=== PATIENT | female | born 1945 | race Caucasian/White ===

== ENCOUNTER → 2016-12-18 | Outpatient (CLI) | payer OTHER, MEDICARE | LOC: FLAB 14:17 | PROVIDERS: ATTEND Nurse Practitioner | DX: Z98.1 Arthrodesis status (principal); M54.5 Low back pain ==

== ENCOUNTER 2017-03-29 14:13 | Emergency (ER) | payer OTHER, MEDICARE ==
[2017-03-29 14:33] VITALS: BP 123/71; PULSE 78; RESP 22; TEMP 97.7; O2SAT 98
[2017-03-29] MEDS ORDERED: DIAZEPAM 10 MG/2 ML SYR IVP ONE (14:50)
[2017-03-29] MEDS ORDERED: DEXAMETHASONE 10 MG/ML VIAL IVP ONE (14:50)
--- NOTE | 2017-03-29 15:11 | EDPHY ---
H & P Stated Complaint: r back and abd pain Source: Patient, Family Exam Limitations: No limitations - Personal History Current Tetanus Diphtheria and Acellular Pertussis (TDAP): Yes Tetanus Vaccine Date: December 2014 - Medical/Surgical History Hx Asthma: No Hx Chronic Respiratory Disease: No Hx Diabetes: Yes Hx Cardiac Disease: No Hx Renal Disease: No Hx Cirrhosis: No Hx Alcoholism: No Hx HIV/AIDS: No Hx Splenectomy or Spleen Trauma: No Other PMH: hysterectomy, first back surgery 4-5 yrs ago, type 2 diabetes, chronic pain - Social History Smoking Status: Never smoked Time Seen by Provider: 03/29/17 15:07 HPI/ROS: HPI: This is a 71-year-old female who presents with Chief Complaint: Right lower back pain Location: Right lower back Quality: Sharp pain Duration: 1 day Signs and Symptoms: + radiation to right buttock, no incontinence, no dysuria, no hematuria, no weakness, no tingling, no numbness Timing: Gradually worsening Severity: 03/05 Context: Patient has a prior history of an instrumented lumbar fusion L3-L4 level, with acute on chronic exacerbation a bilateral lumbar sacral radiculopathy, right greater than left with dull chronic axial low back pain. She reports that she has had 3 back surgeries total. [facility] higher level class than she normally does experience some right hip pain and lower back pain during the class; modified her position. She woke up Thursday morning with right lower back pain that was worse than her baseline; and now has radiculopathy into her right buttock. She is convinced that her SI joint is the cause. No history kidney stones. Reports that she stopped taking her Neurontin in December due to causing "fluid buildup." Modifying Factors: Flexeril, tramadol no relief Comment: ROS: Constitutional: No fever, no chills, no weight loss Eyes: No blurred vision Respiratory: No shortness of breath, no cough Cardiovascular: No chest pain Gastrointestinal: No nausea, no vomiting no diarrhea Genitourinary: No dysuria Extremities: No myalgias Neurologic: No weakness, no numbness Skin: No rashes Hematologic: No bruising, no bleeding MEDICAL/SURGICAL HISTORY: Type 2 diabetes mellitus on metformin. (Beba Velasquez) - Physical Exam Exam: CONSTITUTIONAL: Adult white female who appears younger than stated age, moaning and writhing in bed, awake and alert, moderate distress HEENT: Atraumatic and normocephalic, PERRL, EOMI. Tympanic membranes clear. Oropharynx clear, no exudate and moist pink mucosa. Airway patent. No lymphadenopathy. No meningismus. Cardiovascular: Normal S1/S2, regular rate, regular rhythm, without murmur rub or gallop. PULMONARY/CHEST: Symmetrical and nontender. Clear to auscultation bilaterally Good air movement. No accessory muscle usage. ABDOMEN: Soft, nondistended, nontender, no rebound, no guarding, no peritoneal signs, no masses or organomegaly. No CVAT. EXTREMITIES: 2/2 pulses, no deformities, no clubbing, no cyanosis or edema. BACK: Moderate reproducible right paraspinous muscle tenderness lumbar distribution; no paraspinous spasm, mild pain with right straight leg raise. Deep tendon reflexes 2/2 including patellar reflexes 2/2. Right hip: No tenderness over the greater trochanter; no pain with flexion/extension/internal rotation/external rotation. tenderness with palpation right SI joint. NEUROLOGICAL: no focal neuro deficits. GCS 15. Ambulatory with slow gait. SKIN: Warm and dry, no erythema. no rash. Good capillary refill. (Beba Velasquez) Constitutional: Initial Vital Signs Temperature (C) 36.5 C 03/29/17 14:30 Heart Rate 78 03/29/17 14:30 Respiratory Rate 22 H 03/29/17 14:30 Blood Pressure 123/71 H 03/29/17 14:30 O2 Sat (%) 98 03/29/17 14:30 O2 Delivery Mode Room Air Allergies/Adverse Reactions: propoxyphene HCl [From Darvon] Allergy (Severe, Verified 03/29/17 14:25) TONGUE SWELLING, CHOKING aspirin Allergy (Verified 03/29/17 14:25) Vomiting esomeprazole magnesium [From Nexium] Allergy (Verified 03/29/17 14:25) Vomiting ibuprofen Allergy (Verified 03/29/17 14:25) Vomiting lactose [Lactose] Allergy (Verified 03/29/17 14:25) GI meperidine HCl [From Demerol] Allergy (Verified 03/29/17 14:25) Abdominal Pain Sulfa (Sulfonamide Antibiotics) Allergy (Verified 09/03/17 14:25) Rash Home Medications: Medication Instructions Recorded Calcium Carb W/Vit D [Calcium Carb 500 mg PO BID 05/08/15 W/Vit D 500/200 (*)] Cyclobenzaprine [Flexeril] 10 mg PO BID PRN 05/08/15 Desloratadine [Clarinex] 5 mg PO DAILY 05/08/15 Docusate Sodium [Colace 100 MG (*)] 100 mg PO HS 05/08/15 Epinastine 0.05% [Elestat 0.05%] 1 drops EACHEYE BID PRN 05/08/15 Estradiol [VAGIFEM] 10 mcg VG WE@2100 05/08/15 Famotidine [Pepcid 20 MG (*)] 20 mg PO BID PRN 05/08/15 Herbals/Supplements -Info Only 1 ea PO DAILY 05/08/15 Metoprolol Succinate Xr [Toprol Xl 6.25 mg PO DAILY PRN 05/08/15 25 mg (*)] Mometasone Furoate Nasal [Nasonex] 1 sprays NASAL DAILY PRN 05/08/15 Simvastatin [Zocor] 20 mg PO DAILY@1800 05/08/15 metFORMIN HCL [Glucophage 500 mg 500 mg PO BIDMEAL 05/08/15 (*)] C/E/Zn/Cu/OM3/DHA/EPA/LUT/ZEAX 1 each PO BID 05/09/15 [Preservision Areds 2 Softgel] Diazepam [Valium 5 MG (*)] 2.5 - 5 mg PO QID PRN #0 tab 06/09/15 Gabapentin [Neurontin 300 MG (*)] 600 mg PO TID #0 cap 06/09/15 Lidocaine 5% [Lidoderm 5% Patch 1 ea TD DAILY #0 patch 06/09/15 (*)] Methocarbamol [Robaxin 750 mg (*)] 750 mg PO QID PRN #0 tab 06/09/15 Lidocaine 5% [Lidoderm 5% Patch 1 ea TD DAILY PRN #12 patch 03/29/17 (*)] Senna Lax 03/29/17 traMADol 03/29/17 traMADol [Ultram 50 mg (*)] 50 mg PO Q4 PRN #15 tab 03/29/17 Medical Decision Making - Diagnostics Imaging Results: Imaging Impressions Lumbar Spine X-Ray 03/29/17 14:50 Impression: Excellent stable postoperative alignment x 4 months. 2. AP Pelvis History: Low back and SI joint pain Comparison: None Findings: The pelvic ring is intact. The SI joints, hip joints and pubic symphysis look normal. Overall mineralization is normal. Impression: Negative Pelvis X-Ray 03/29/17 14:50 Impression: Excellent stable postoperative alignment x 4 months. 2. AP Pelvis History: Low back and SI joint pain Comparison: None Findings: The pelvic ring is intact. The SI joints, hip joints and pubic symphysis look normal. Overall mineralization is normal. Impression: Negative ED Course/Re-evaluation: The patient was evaluated and managed by the physician optometry assistant. I have reviewed this chart and I agree with the findings and plan of care as documented , as indicated by my signature. I am the secondary supervising physician. ( Dolores Banks) Lumbosacral x-rays, pelvic x-rays, urinalysis, IV medication ordered Given IV Decadron and IV Valium no signs of neurovascular compromise/tenting of skin/saddle anesthesia/cauda equina syndrome Lumbar spine x-ray my read via PACs shows hardware intact; no acute fracture; incidentally moderate stool burden noted Pelvic x-ray my read shows normal SI joints 1550: Reassessed patient reports only mild relief. She believes she can give a urine sample now. Nasal ketamine given. 1649: up to bathroom with assistance. Pt states " I want the pain to be gone." IV Dilaudid 1 mg, Lidoderm patch and Gabapentin given 1720: Reassessed patient and she has been sleeping for the last 30 minutes, adequate relief of pain achieved. At discharge patient now relates that her tramadol as 2 years old is requesting new prescription as well as a script for Lidoderm patches. Patient is very anxious. Reassurance provided by myself, nursing staff. Lives with her and has strong family support. Walking back and forth to the bathroom during the ER visit. Discussed having small amount of blood in her urine; no signs of infection. Denies having a kidney stone. Believes it is all related to her back. Politely refuses any further workup for kidney stone. I feel this is reasonable as low yield. Will refer back to neurosurgeon for follow-up and determine if MRI warranted, continue to take chronic pain and muscle relaxers as needed for pain (Beba Velasquez) Differential Diagnosis: Back pain including but not limited to muscular pain, herniated disc, spine fracture, intra-abdominal causes and urinary tract infection. (Beba Velasquez) - Data Points Laboratory Results: 03/29/17 16:55 Urine Color YELLOW Urine Appearance CLEAR Urine pH 7.0 (5.0-7.5) Ur Specific [place] 1.017 (1.002-1.030) Urine Protein NEGATIVE (NEGATIVE) Urine Ketones NEGATIVE (NEGATIVE) Urine Blood 1+ H (NEGATIVE) Urine Nitrate NEGATIVE (NEGATIVE) Urine Bilirubin NEGATIVE (NEGATIVE) Urine Urobilinogen NEGATIVE EU EU (0.2-1.0) Ur Leukocyte Esterase NEGATIVE (NEGATIVE) Urine RBC 5-10 /hpf H /hpf (0-3) Urine WBC 1-3 /hpf /hpf (0-3) Ur Epithelial Cells TRACE /lpf /lpf (NONE-1+) Urine Mucus TRACE /lpf /lpf (NONE-1+) Urine Glucose NEGATIVE (NEGATIVE) Medications Given: Discontinued Medications Dexamethasone (Decadron Injection) 10 mg IVP EDNOW ONE Stop: 03/29/17 14:51 Last Admin: 03/29/17 15:10 Dose: 10 mg Diazepam (Valium Injection) 5 mg IVP EDNOW ONE Stop: 03/29/17 14:51 Last Admin: 03/29/17 15:09 Dose: 5 mg Gabapentin (Neurontin) 600 mg PO EDNOW ONE Stop: 03/29/17 16:54 Last Admin: 03/29/17 17:06 Dose: 600 mg Hydromorphone HCl (Dilaudid) 1 mg IVP EDNOW ONE Stop: 03/29/17 16:57 Last Admin: 03/29/17 17:06 Dose: 1 mg Ketamine HCl (Ketamine) 50 mg NASAL EDNOW ONE Stop: 03/29/17 15:52 Last Admin: 03/29/17 16:00 Dose: 50 mg Lidocaine (Lidoderm 5%) 1 ea TD EDNOW ONE Stop: 03/29/17 16:54 Last Admin: 03/29/17 17:04 Dose: 1 ea Departure - Departure Disposition: Home, Routine, Self-Care Clinical Impression: Acute exacerbation of chronic low back pain, Sacroiliac joint pain Condition: Good Instructions: Sacroiliitis (ED) Additional Instructions: Follow up with PCP/Neurosurgery in 2-3 days if symptoms not improved. Referrals: BARRY HA [Primary Care Provider] - As per Instructions Cornelius Sanches MD [Medical Doctor] - 2-3 days, if not improved Prescriptions: Lidocaine 5% [Lidoderm 5% Patch (*)] 1 ea TD DAILY PRN #12 patch PRN Reason: Pain, Moderate traMADol [Ultram 50 mg (*)] 50 mg PO Q4 PRN #15 tab PRN Reason: Pain, Moderate Able To Take Po
[2017-03-29] MEDS ORDERED: KETAMINE 500 MG/10 ML VIAL NASAL ONE (15:51)
[2017-03-29] MEDS ORDERED: GABAPENTIN 300 MG CAP PO ONE (16:53)
[2017-03-29] MEDS ORDERED: LIDOCAINE 5% 1 EA PATCH TD ONE (16:53)
[2017-03-29] MEDS ORDERED: HYDROmorphONE/DILAUDID 1 MG/ML INJ IVP ONE (16:56)
[2017-03-29 17:03] LABS: COLOR YELLOW; LEUKOCYTE ESTERASE,URINE NEGATIVE (NEGATIVE); NITRITE,URINE NEGATIVE (NEGATIVE)
[2017-03-29 17:11] LABS: MUCUS TRACE /lpf (NONE-1+)
[2017-03-29] MEDS ORDERED: DIAZEPAM 5 MG PREPACK#4 BTL TAKEHOME ONE (19:31)
[2017-03-29] MEDS ORDERED: HYDROCOD/APAP 5/325 PREPACK#6 BTL TAKEHOME ONE (19:31)
[2017-03-29] MEDS ORDERED: PATCH REMOVAL 1 EA PATCH TD SCH (21:00)
== END 2017-03-29 18:28 | disposition home or self-care (01) ==
DX: M54.5 Low back pain (principal); M53.3 Sacrococcygeal disorders, not elsewhere classified; G89.29 Other chronic pain; E11.9 Type 2 diabetes mellitus without complications
CPT/HCPCS: 72100; 72170; 96374; 96375; 99284; J1100; J1170

== ENCOUNTER → 2017-04-01 | Outpatient (CLI) | payer OTHER, MEDICARE | LOC: FIMAGING 10:40 | PROVIDERS: ATTEND Nurse Practitioner | DX: M54.5 Low back pain (principal); M25.551 Pain in right hip; M43.16 Spondylolisthesis, lumbar region; Z98.1 Arthrodesis status ==

== ENCOUNTER → 2017-04-25 | Outpatient (CLI) | payer OTHER, MEDICARE | LOC: FIMAGING 13:39 | PROVIDERS: ATTEND Physician Assistant | DX: M25.551 Pain in right hip (principal); M54.16 Radiculopathy, lumbar region; Z98.1 Arthrodesis status ==

== ENCOUNTER → 2018-01-11 | Outpatient (CLI) | payer OTHER, MEDICARE | LOC: FIMAGING 14:41 | PROVIDERS: ATTEND Physician Assistant | DX: M51.16 Intervertebral disc disorders with radiculopathy, lumbar region (principal); Z98.1 Arthrodesis status ==

== ENCOUNTER → 2019-01-05 | Outpatient (CLI) | payer OTHER, MEDICARE | LOC: FIMAGING 14:28 ==